=== PATIENT | female | born 1985 | race Caucasian/White ===

== ENCOUNTER 2019-02-20 05:45 | Emergency (ER) | payer MEDICAID ==
[~2019-02-20] VITALS: Ht 162.6 cm; Wt 79.8 kg
[2019-02-20 05:48] VITALS: BP 140/88
--- NOTE | 2019-02-20 05:50 | NUR ---
PT PRESENTS TO THE ED WITH C/O HEADACHE X1WEEK. PT REPORTS FEELING ITCHY ON HER HEAD AND STATES THAT SHE HEARS "SOMETHING CRAWLING IN HER HEAD." PT DENIES ANY TRAUMA. BED LOWERED WITH SIDE RAILS UP
--- NOTE | 2019-02-20 06:00 | NUR ---
PT EVALUATED BY DR JENKINS
[2019-02-20 06:28] LABS: BASOPHILS # (AUTO) 0.1 K/uL (0.00-0.22); BASOPHILS % (AUTO) 0.6 % (0.0-2.0); EOSINOPHILS # (AUTO) 0.3 K/uL (0-0.4); EOSINOPHILS % (AUTO) 3.5 % (0.0-4.0); HEMATOCRIT 44.8 % (36-48); LYMPHOCYTES # (AUTO) 2.7 K/uL (2.5-16.5); LYMPHOCYTES % (AUTO) 29.4 % (20.5-51.1); MEAN CORPUSCULAR HEMOGLOBIN 32 pg (27-31); MEAN CORPUSCULAR HGB CONC 33 g/dL (33-37); MEAN CORPUSCULAR VOLUME 94.6 fL (80-94); MONOCYTES # (AUTO) 0.7 K/uL (0.8-1.0); MONOCYTES % (AUTO) 7.8 % (1.7-9.3); NEUTROPHILS # (AUTO) 5.3 K/uL (1.8-7.7); NEUTROPHILS % (AUTO) 58.7 % (42.2-75.2); PLATELET COUNT (AUTO) 312 K/uL (140-450); RED BLOOD CELL COUNT(AUTO) 4.74 MIL/uL (4.20-5.40); RED CELL DISTRIBUTION WIDTH 13.5 % (11.6-13.7); WHITE BLOOD COUNT (AUTO) 9.1 K/uL (4.8-10.8)
--- NOTE | 2019-02-20 06:30 | NUR ---
PATIENT ELOPED FROM FACILITY. DISCHARGE INSTRUCTIONS NOT GIVEN TO PATIENT. DR. JENKINS NOTIFIED.
[2019-02-20 07:00] LABS: ANION GAP 13.3 (8-16); CARBON DIOXIDE 27.4 mmol/L (21-32); POTASSIUM 3.7 mmol/L (3.5-5.1)
[2019-02-20 07:01] LABS: ALBUMIN 3.8 g/dL (3.4-5.0); CREATININE 0.7 mg/dL (0.6-1.3); TOTAL BILIRUBIN 0.4 mg/dL (0.0-1.0)
[2019-02-20 07:09] LABS: BARBITURATE, URINE NEGATIVE ng/ml (NEG <=200); BENZODIAZEPINE, URINE NEGATIVE ng/mL (NEG <=200); CANNABINOID, URINE NEGATIVE ng/mL (NEG <=50); COCAINE, URINE NEGATIVE ng/mL (NEG <=300); OPIATE, URINE NEGATIVE ng/mL (NEG <=2000); PHENCYCLIDINE SCREEN,URINE NEGATIVE ng/mL (NEG <=25)
== END 2019-02-20 06:30 | disposition left against medical advice (07) ==
LOC: MED 05:45
DX: F15.129 Other stimulant abuse with intoxication, unspecified (principal); K21.9 Gastro-esophageal reflux disease without esophagitis; F32.9 Major depressive disorder, single episode, unspecified
CPT/HCPCS: 36415; 80053; 80305; 85025; 99283

== ENCOUNTER 2019-02-20 11:07 | Emergency (ER) | payer MEDICAID ==
[~2019-02-20] VITALS: Ht 162.6 cm; Wt 79.4 kg
[2019-02-20 11:12] VITALS: BP 121/98
--- NOTE | 2019-02-20 11:19 | NUR ---
PATIENT AMBULATED TO BED 1.
--- NOTE | 2019-02-20 11:26 | NUR ---
33 y/o female presenting with c/c of headache 8/10 throbbing, itching on scalp and bilat hands x1 week. per patient believes her puppies gave her the itching. pt positive for meth this morning. currently second visit to hospital same day. pt nka. pt on nitrofurantoin and other medications, was not able to state. pt with hx of depression, anxiety, ptsd and lyme disease. last oral intake this morning tolerated well. denies n/v/d. side rail x1.
--- NOTE | 2019-02-20 11:32 | NUR ---
Dr. Cloud at bedside.
[2019-02-20 12:30] VITALS: BP 116/84
--- NOTE | 2019-02-20 12:30 | NUR ---
Patient discharged with v/s stable. Written and verbal after care instructions given and explained. Patient alert, oriented and verbalized understanding of instructions. Ambulatory with steady gait. All questions addressed prior to discharge. ID band removed. Patient advised to follow up with PMD. Rx of LIDANE SHAMPOO AND ATARAX given. Patient educated on indication of medication including possible reaction and side effects. Opportunity to ask questions provided and answered. PT INSTRUCTED TO APPLY 1-2 OZ OF SHAMPOO ON DRY HAIR, LEAVE ON FOR 4 MIN, LATHER, THEN RINSE PT GIVEN COPY OF LAB RESULTS FROM THIS AM
== END 2019-02-20 12:30 | disposition home or self-care (01) ==
LOC: MED 11:07
DX: R21 Rash and other nonspecific skin eruption (principal); F15.10 Other stimulant abuse, uncomplicated; F41.9 Anxiety disorder, unspecified
CPT/HCPCS: 99283